=== PATIENT | male | born 1965 | race Hispanic/Latino ===

== ENCOUNTER 2019-10-09 18:36 | Inpatient (IN) | payer OTHER ==
[~2019-10-09] VITALS: Ht 160 cm; Wt 70.8 kg
[~2019-10-09 18:36] MED LIST: ASPIRIN325 MG PO; ATORVASTATIN CA10 MG PO; CILOSTAZOL50 MG PO; GABAPENTIN300 MG PO; GEMFIBROZIL600 MG PO; GLYBURIDE5 MG PO; METFORMIN HCL500 MG PO; PANTOPRAZOLE SO20 MG PO; TRADJENTA5 MG PO
--- OUTSIDE RECORDS SUMMARY | 2019-10-09 18:39 | XMS REPORT ---
[facility] Address Unknown Phone Unavailable Care Team Providers Care Mechanical Product Design Engineer Name Role Phone Unavailable Unavailable Payers Payer Name Policy Type Policy Number Effective Date Expiration Date Problems This patient has no known problems. Allergies, Adverse Reactions, Alerts Allergy Name Allergy Type Status Severity Reaction(s) Onset Date Inactive Date Treating Clinician Comments No Known Allergies DA Active U 2019-10-06 00:00:00 No Known Allergies DA Active U 2019-09-05 00:00:00 No Known Allergies DA Active U 2011-02-21 00:00:00 Medications This patient has no known medications. Results Test Description Test Time Test Comments Text Results Atomic Results Result Comments GLUBED 2019-10-07 10:32:00 GLUBED (test code=GLUBED) 176 mg/dL 74-106 Performed by certified snuff packing machine operator at [facility] PROTHROMBIN [id number] 16:00:00* Test Item Value Reference Range Comments PROTHROMBIN TIME PATIENT (test code=PTP) 11.7 seconds 9.0-14.0 INTERNATIONAL NORMAL RATIO (test code=INR) 1.0 0.8-1.2 The therapeutic range for oral anticoagulant therapy formost indications is an international normalized ratio (INR)of between 2.0 and 3.0. The recommended therapeutic INRrange for various clinical situations is listed below: Clinical Situation INR range Pulmonary e mbolism treatment (2.0-3.0)Venous thrombosis treatmentVenous thrombosis prophylaxis (high risk surgery)Prevention of systemic embolism from: Acute myocardial infarction Valvular heart disease Atrial fibrillation Mechanical prosthetic heart valves (2.5-3.5) THROMBOPLASTIN TIME [id number] 16:00:00* Test Item Value Reference Range Comments THROMBOPLASTIN TIME PARTIAL (test code=PTT) 34.5 seconds 25.0-36.5 BASIC METABOLIC [id number] 15:58:00* Test Item Value Reference Range Comments SODIUM (test code=NA) 140 mmol/L 136-145 POTASSIUM (test code=K) 3.9 mmol/L 3.5-5.1 CHLORIDE (test code=CL) 104.0 mmol/L 98-107 CARBON DIOXIDE (test code=CO2) 29.0 mmol/L 21-32 ANION GAP (test code=GAP) 10.9 10-20 GLUCOSE (test code=GLU) 116 mg/dL 74-106 BLOOD UREA NITROGEN (test code=BUN) 22 mg/dL 7-18 GLOMERULAR FILTRATION RATE (test code=GFR) > 60 mL/min >=60 Estimated GFR by using Modified MDRD formula.Chronic kidney disease is defined as either kidney damageor GFR <60 mL/min/1.73 m2 for >3 months. CREATININE (test code=CREAT) 0.90 mg/dL 0.7-1.3 BUN/CREATININE RATIO (test code=BUN/CREA) 24.4 10-20 CALCIUM (test code=CA) 9.5 mg/dL 8.5-10.1 BASIC METABOLIC [id number] 15:46:00* Test Item Value Reference Range Comments SODIUM (test code=NA) 140 mmol/L 136-145 POTASSIUM (test code=K) 3.9 mmol/L 3.5-5.1 CHLORIDE (test code=CL) 104.0 mmol/L 98-107 CARBON DIOXIDE (test code=CO2) mmol/L 21-32 ANION GAP (test code=GAP) 10-20 GLUCOSE (test code=GLU) mg/dL 74-106 BLOOD UREA NITROGEN (test code=BUN) mg/dL 7-18 GLOMERULAR FILTRATION RATE (test code=GFR) mL/min >=60 CREATININE (test code=CREAT) mg/dL 0.7-1.3 BUN/CREATININE RATIO (test code=BUN/CREA) 10-20 CALCIUM (test code=CA) mg/dL 8.5-10.1 CBC W/AUTO [id number] 15:28:00* Test Item Value Reference Range Comments WHITE BLOOD CELL (test code=WBC) 10.5 K/mm3 4.5-12.5 RED BLOOD CELL (test code=RBC) 5.27 mill/mm3 4.0-5.8 HEMOGLOBIN (test code=HGB) 14.9 gram/dL 13.0-17.5 HEMATOCRIT (test code=HCT) 45.5 % 42.0-52.0 MEAN CELL VOLUME (test code=MCV) 86.3 fL 80-98 MEAN CELL HGB (test code=MCH) 28.3 picogram 27.0-33.0 MEAN CELL HGB CONCETRATION (test code=MCHC) 32.7 gram/dL 33.0-36.0 RED CELL DISTRIBUTION WIDTH (test code=RDW) 13.3 % 11.6-16.2 RED CELL DISTRIBUTION WIDTH SD (test code=RDW-SD) 41.4 fL 37.0-51.0 PLATELET COUNT (test code=PLT) 274 K/mm3 150-450 MEAN PLATELET VOLUME (test code=MPV) 10.4 fL 6.7-11.0 NEUTROPHIL % (test code=NT%) 60.3 % 39.0-69.0 IMMATURE GRANULOCYTE % (test code=IG%) 0.4 % 0.0-5.0 LYMPHOCYTE % (test code=LY%) 28.0 % 25.0-55.0 MONOCYTE % (test code=MO%) 6.8 % 0.0-10.0 EOSINOPHIL % (test code=EO%) 3.6 % 0.0-5.0 BASOPHIL % (test code=BA%) 0.9 % 0.0-1.0 NUCLEATED RBC % (test code=NRBC%) 0.0 % 0-0 NEUTROPHIL # (test code=NT#) 6.35 K/mm3 1.8-7.7 IMMATURE GRANULOCYTE # (test code=IG#) 0.04 x10 3/uL 0-0.03 LYMPHOCYTE # (test code=LY#) 2.94 K/mm3 1.0-5.0 MONOCYTE # (test code=MO#) 0.71 K/mm3 0-0.8 EOSINOPHIL # (test code=EO#) 0.38 K/mm3 0.0-0.5 BASOPHIL # (test code=BA#) 0.09 K/mm3 0.0-0.2 NUCLEATED RBC # (test code=NRBC#) 0.00 K/mm3 0.0-0.1 MANUAL DIFF REQUIRED (test code=MDIFF) NO [id number] 09:21:00* Test Item Value Reference Range Comments GLUBED (test code=GLUBED) 246 mg/dL 74-106 [facility] snuff packing machine [facility] [id number] 21:41:00* Test Item Value Reference Range Comments GLUBED (test code=GLUBED) 230 mg/dL 74-106 Performed by certified snuff packing machine operator at [facility] [id number] 18:37:00* Test Item Value Reference Range Comments GLUBED (test code=GLUBED) 241 mg/dL 74-106 Performed by certified snuff packing machine operator at [facility] [id number] 12:48:00* Test Item Value Reference Range Comments GLUBED (test code=GLUBED) 233 mg/dL 74-106 Performed by certified snuff packing machine operator at [facility] BASIC METABOLIC [id number] 07:32:00* Test Item Value Reference Range Comments SODIUM (test code=NA) 137 mmol/L 136-145 POTASSIUM (test code=K) 4.3 mmol/L 3.5-5.1 CHLORIDE (test code=CL) 104.0 mmol/L 98-107 CARBON DIOXIDE (test code=CO2) 26.0 mmol/L 21-32 ANION GAP (test code=GAP) 11.3 10-20 GLUCOSE (test code=GLU) 263 mg/dL 74-106 BLOOD UREA NITROGEN (test code=BUN) 14 mg/dL 7-18 GLOMERULAR FILTRATION RATE (test code=GFR) > 60 mL/min >=60 Estimated GFR by using Modified MDRD formula.Chronic kidney disease is defined as either kidney damageor GFR <60 mL/min/1.73 m2 for >3 months. CREATININE (test code=CREAT) 0.70 mg/dL 0.7-1.3 BUN/CREATININE RATIO (test code=BUN/CREA) 20.0 10-20 CALCIUM (test code=CA) 8.4 mg/dL 8.5-10.1 BASIC METABOLIC [id number] 07:16:00* Test Item Value Reference Range Comments SODIUM (test code=NA) 137 mmol/L 136-145 POTASSIUM (test code=K) 4.3 mmol/L 3.5-5.1 CHLORIDE (test code=CL) 104.0 mmol/L 98-107 CARBON DIOXIDE (test code=CO2) mmol/L 21-32 ANION GAP (test code=GAP) 10-20 GLUCOSE (test code=GLU) mg/dL 74-106 BLOOD UREA NITROGEN (test code=BUN) mg/dL 7-18 GLOMERULAR FILTRATION RATE (test code=GFR) mL/min >=60 CREATININE (test code=CREAT) mg/dL 0.7-1.3 BUN/CREATININE RATIO (test code=BUN/CREA) 10-20 CALCIUM (test code=CA) mg/dL 8.5-10.1 CBC W/AUTO [id number] 07:13:00* Test Item Value Reference Range Comments WHITE BLOOD CELL (test code=WBC) 9.0 K/mm3 4.5-12.5 RED BLOOD CELL (test code=RBC) 5.35 mill/mm3 4.0-5.8 HEMOGLOBIN (test code=HGB) 15.1 gram/dL 13.0-17.5 HEMATOCRIT (test code=HCT) 45.1 % 42.0-52.0 MEAN CELL VOLUME (test code=MCV) 84.3 fL 80-98 MEAN CELL HGB (test code=MCH) 28.2 picogram 27.0-33.0 MEAN CELL HGB CONCETRATION (test code=MCHC) 33.5 gram/dL 33.0-36.0 RED CELL DISTRIBUTION WIDTH (test code=RDW) 12.8 % 11.6-16.2 RED CELL DISTRIBUTION WIDTH SD (test code=RDW-SD) 38.6 fL 37.0-51.0 PLATELET COUNT (test code=PLT) 212 K/mm3 150-450 MEAN PLATELET VOLUME (test code=MPV) 11.0 fL 6.7-11.0 NEUTROPHIL % (test code=NT%) 60.5 % 39.0-69.0 IMMATURE GRANULOCYTE % (test code=IG%) 0.3 % 0.0-5.0 LYMPHOCYTE % (test code=LY%) 26.4 % 25.0-55.0 MONOCYTE % (test code=MO%) 6.8 % 0.0-10.0 EOSINOPHIL % (test code=EO%) 5.3 % 0.0-5.0 BASOPHIL % (test code=BA%) 0.7 % 0.0-1.0 NUCLEATED RBC % (test code=NRBC%) 0.0 % 0-0 NEUTROPHIL # (test code=NT#) 5.43 K/mm3 1.8-7.7 IMMATURE GRANULOCYTE # (test code=IG#) 0.03 x10 3/uL 0-0.03 LYMPHOCYTE # (test code=LY#) 2.37 K/mm3 1.0-5.0 MONOCYTE # (test code=MO#) 0.61 K/mm3 0-0.8 EOSINOPHIL # (test code=EO#) 0.48 K/mm3 0.0-0.5 BASOPHIL # (test code=BA#) 0.06 K/mm3 0.0-0.2 NUCLEATED RBC # (test code=NRBC#) 0.00 K/mm3 0.0-0.1 MANUAL DIFF REQUIRED (test code=MDIFF) NO [id number] 20:29:00* Test Item Value Reference Range Comments GLUBED (test code=GLUBED) 242 mg/dL 74-106 Performed by certified snuff packing machine operator at [facility] [id number] 16:42:00* Test Item Value Reference Range Comments GLUBED (test code=GLUBED) 286 mg/dL 74-106 Performed by certified snuff packing machine operator at [facility] BASIC METABOLIC [id number] 13:24:00* Test Item Value Reference Range Comments SODIUM (test code=NA) 137 mmol/L 136-145 POTASSIUM (test code=K) 4.3 mmol/L 3.5-5.1 CHLORIDE (test code=CL) 104.0 mmol/L 98-107 CARBON DIOXIDE (test code=CO2) 29.0 mmol/L 21-32 ANION GAP (test code=GAP) 8.3 10-20 GLUCOSE (test code=GLU) 213 mg/dL 74-106 BLOOD UREA NITROGEN (test code=BUN) 17 mg/dL 7-18 GLOMERULAR FILTRATION RATE (test code=GFR) > 60 mL/min >=60 Estimated GFR by using Modified MDRD formula.Chronic kidney disease is defined as either kidney damageor GFR <60 mL/min/1.73 m2 for >3 months. CREATININE (test code=CREAT) 0.70 mg/dL 0.7-1.3 BUN/CREATININE RATIO (test code=BUN/CREA) 24.3 10-20 CALCIUM (test code=CA) 8.2 mg/dL 8.5-10.1 CBC W/AUTO [id number] 13:01:00* Test Item Value Reference Range Comments WHITE BLOOD CELL (test code=WBC) 10.1 K/mm3 4.5-12.5 RED BLOOD CELL (test code=RBC) 5.53 mill/mm3 4.0-5.8 HEMOGLOBIN (test code=HGB) 15.6 gram/dL 13.0-17.5 HEMATOCRIT (test code=HCT) 46.7 % 42.0-52.0 MEAN CELL VOLUME (test code=MCV) 84.4 fL 80-98 MEAN CELL HGB (test code=MCH) 28.2 picogram 27.0-33.0 MEAN CELL HGB CONCETRATION (test code=MCHC) 33.4 gram/dL 33.0-36.0 RED CELL DISTRIBUTION WIDTH (test code=RDW) 12.9 % 11.6-16.2 RED CELL DISTRIBUTION WIDTH SD (test code=RDW-SD) 39.8 fL 37.0-51.0 PLATELET COUNT (test code=PLT) 220 K/mm3 150-450 MEAN PLATELET VOLUME (test code=MPV) 10.9 fL 6.7-11.0 NEUTROPHIL % (test code=NT%) 57.1 % 39.0-69.0 IMMATURE GRANULOCYTE % (test code=IG%) 0.3 % 0.0-5.0 LYMPHOCYTE % (test code=LY%) 31.2 % 25.0-55.0 MONOCYTE % (test code=MO%) 6.1 % 0.0-10.0 EOSINOPHIL % (test code=EO%) 4.4 % 0.0-5.0 BASOPHIL % (test code=BA%) 0.9 % 0.0-1.0 NUCLEATED RBC % (test code=NRBC%) 0.0 % 0-0 NEUTROPHIL # (test code=NT#) 5.76 K/mm3 1.8-7.7 IMMATURE GRANULOCYTE # (test code=IG#) 0.03 x10 3/uL 0-0.03 LYMPHOCYTE # (test code=LY#) 3.15 K/mm3 1.0-5.0 MONOCYTE # (test code=MO#) 0.62 K/mm3 0-0.8 EOSINOPHIL # (test code=EO#) 0.44 K/mm3 0.0-0.5 BASOPHIL # (test code=BA#) 0.09 K/mm3 0.0-0.2 NUCLEATED RBC # (test code=NRBC#) 0.00 K/mm3 0.0-0.1 MANUAL DIFF REQUIRED (test code=MDIFF) NO [id number] 08:20:00* Test Item Value Reference Range Comments GLUBED (test code=GLUBED) 200 mg/dL 74-106 Performed by certified snuff packing machine operator at [facility] BASIC METABOLIC [id number] 07:10:00* Test Item Value Reference Range Comments SODIUM (test code=NA) 137 mmol/L 136-145 POTASSIUM (test code=K) 4.1 mmol/L 3.5-5.1 CHLORIDE (test code=CL) 105.0 mmol/L 98-107 CARBON DIOXIDE (test code=CO2) 27.0 mmol/L 21-32 ANION GAP (test code=GAP) 9.1 10-20 GLUCOSE (test code=GLU) 231 mg/dL 74-106 BLOOD UREA NITROGEN (test code=BUN) 19 mg/dL 7-18 GLOMERULAR FILTRATION RATE (test code=GFR) > 60 mL/min >=60 Estimated GFR by using Modified MDRD formula.Chronic kidney disease is defined as either kidney damageor GFR <60 mL/min/1.73 m2 for >3 months. CREATININE (test code=CREAT) 0.70 mg/dL 0.7-1.3 BUN/CREATININE RATIO (test code=BUN/CREA) 27.1 10-20 CALCIUM (test code=CA) 8.4 mg/dL 8.5-10.1 BASIC METABOLIC [id number] 07:03:00* Test Item Value Reference Range Comments SODIUM (test code=NA) 137 mmol/L 136-145 POTASSIUM (test code=K) 4.1 mmol/L 3.5-5.1 CHLORIDE (test code=CL) 105.0 mmol/L 98-107 CARBON DIOXIDE (test code=CO2) mmol/L 21-32 ANION GAP (test code=GAP) 10-20 GLUCOSE (test code=GLU) mg/dL 74-106 BLOOD UREA NITROGEN (test code=BUN) mg/dL 7-18 GLOMERULAR FILTRATION RATE (test code=GFR) mL/min >=60 CREATININE (test code=CREAT) mg/dL 0.7-1.3 BUN/CREATININE RATIO (test code=BUN/CREA) 10-20 CALCIUM (test code=CA) mg/dL 8.5-10.1 PROTHROMBIN [id number] 06:56:00* Test Item Value Reference Range Comments PROTHROMBIN TIME PATIENT (test code=PTP) 11.5 seconds 9.0-14.0 INTERNATIONAL NORMAL RATIO (test code=INR) 1.0 0.8-1.2 The therapeutic range for oral anticoagulant therapy formost indications is an international normalized ratio (INR)of between 2.0 and 3.0. The recommended therapeutic INRrange for various clinical situations is listed below: Clinical Situation INR range Pulmonary e mbolism treatment (2.0-3.0)Venous thrombosis treatmentVenous thrombosis prophylaxis (high risk surgery)Prevention of systemic embolism from: Acute myocardial infarction Valvular heart disease Atrial fibrillation Mechanical prosthetic heart valves (2.5-3.5) IS PATIENT ON ANTICOAGULANTS? NTHROMBOPLASTIN TIME [id number] 06:56:00* Test Item Value Reference Range Comments THROMBOPLASTIN TIME PARTIAL (test code=PTT) 34.0 seconds 25.0-36.5 IS PATIENT ON ANTICOAGULANTS? NCBC W/AUTO [id number] 06:37:00* Test Item Value Reference Range Comments WHITE BLOOD CELL (test code=WBC) 8.6 K/mm3 4.5-12.5 RED BLOOD CELL (test code=RBC) 5.04 mill/mm3 4.0-5.8 HEMOGLOBIN (test code=HGB) 14.2 gram/dL 13.0-17.5 HEMATOCRIT (test code=HCT) 44.0 % 42.0-52.0 MEAN CELL VOLUME (test code=MCV) 87.3 fL 80-98 MEAN CELL HGB (test code=MCH) 28.2 picogram 27.0-33.0 MEAN CELL HGB CONCETRATION (test code=MCHC) 32.3 gram/dL 33.0-36.0 RED CELL DISTRIBUTION WIDTH (test code=RDW) 13.1 % 11.6-16.2 RED CELL DISTRIBUTION WIDTH SD (test code=RDW-SD) 41.2 fL 37.0-51.0 PLATELET COUNT (test code=PLT) 204 K/mm3 150-450 MEAN PLATELET VOLUME (test code=MPV) 10.6 fL 6.7-11.0 NEUTROPHIL % (test code=NT%) 57.8 % 39.0-69.0 IMMATURE GRANULOCYTE % (test code=IG%) 0.2 % 0.0-5.0 LYMPHOCYTE % (test code=LY%) 28.9 % 25.0-55.0 MONOCYTE % (test code=MO%) 6.5 % 0.0-10.0 EOSINOPHIL % (test code=EO%) 5.7 % 0.0-5.0 BASOPHIL % (test code=BA%) 0.9 % 0.0-1.0 NUCLEATED RBC % (test code=NRBC%) 0.0 % 0-0 NEUTROPHIL # (test code=NT#) 4.94 K/mm3 1.8-7.7 IMMATURE GRANULOCYTE # (test code=IG#) 0.02 x10 3/uL 0-0.03 LYMPHOCYTE # (test code=LY#) 2.48 K/mm3 1.0-5.0 MONOCYTE # (test code=MO#) 0.56 K/mm3 0-0.8 EOSINOPHIL # (test code=EO#) 0.49 K/mm3 0.0-0.5 BASOPHIL # (test code=BA#) 0.08 K/mm3 0.0-0.2 NUCLEATED RBC # (test code=NRBC#) 0.00 K/mm3 0.0-0.1 [id number] 21:26:00* Test Item Value Reference Range Comments GLUBED (test code=GLUBED) 265 mg/dL 74-106 Performed by certified snuff packing machine operator at [facility] [id number] 16:31:00* Test Item Value Reference Range Comments GLUBED (test code=GLUBED) 206 mg/dL 74-106 Performed by certified snuff packing machine operator at [facility] [id number] 12:36:00* Test Item Value Reference Range Comments GLUBED (test code=GLUBED) 310 mg/dL 74-106 [facility] certified snuff packing machine [facility] [id number] 08:13:00* Test Item Value Reference Range Comments GLUBED (test code=GLUBED) 210 mg/dL 74-106 Performed by certified snuff packing machine operator at [facility] BASIC METABOLIC [id number] 05:58:00* Test Item Value Reference Range Comments SODIUM (test code=NA) 140 mmol/L 136-145 POTASSIUM (test code=K) 4.2 mmol/L 3.5-5.1 CHLORIDE (test code=CL) 106.0 mmol/L 98-107 CARBON DIOXIDE (test code=CO2) 29.0 mmol/L 21-32 ANION GAP (test code=GAP) 9.2 10-20 GLUCOSE (test code=GLU) 232 mg/dL 74-106 BLOOD UREA NITROGEN (test code=BUN) 16 mg/dL 7-18 GLOMERULAR FILTRATION RATE (test code=GFR) > 60 mL/min >=60 Estimated GFR by using Modified MDRD formula.Chronic kidney disease is defined as either kidney damageor GFR <60 mL/min/1.73 m2 for >3 months. CREATININE (test code=CREAT) 0.80 mg/dL 0.7-1.3 BUN/CREATININE RATIO (test code=BUN/CREA) 20.0 10-20 CALCIUM (test code=CA) 8.1 mg/dL 8.5-10.1 CBC W/AUTO [id number] 05:36:00* Test Item Value Reference Range Comments WHITE BLOOD CELL (test code=WBC) 9.7 K/mm3 4.5-12.5 RED BLOOD CELL (test code=RBC) 5.03 mill/mm3 4.0-5.8 HEMOGLOBIN (test code=HGB) 14.2 gram/dL 13.0-17.5 HEMATOCRIT (test code=HCT) 43.2 % 42.0-52.0 MEAN CELL VOLUME (test code=MCV) 85.9 fL 80-98 MEAN CELL HGB (test code=MCH) 28.2 picogram 27.0-33.0 MEAN CELL HGB CONCETRATION (test code=MCHC) 32.9 gram/dL 33.0-36.0 RED CELL DISTRIBUTION WIDTH (test code=RDW) 13.4 % 11.6-16.2 RED CELL DISTRIBUTION WIDTH SD (test code=RDW-SD) 41.6 fL 37.0-51.0 PLATELET COUNT (test code=PLT) 205 K/mm3 150-450 MEAN PLATELET VOLUME (test code=MPV) 10.6 fL 6.7-11.0 NEUTROPHIL % (test code=NT%) 55.1 % 39.0-69.0 IMMATURE GRANULOCYTE % (test code=IG%) 0.3 % 0.0-5.0 LYMPHOCYTE % (test code=LY%) 32.6 % 25.0-55.0 MONOCYTE % (test code=MO%) 6.5 % 0.0-10.0 EOSINOPHIL % (test code=EO%) 4.6 % 0.0-5.0 BASOPHIL % (test code=BA%) 0.9 % 0.0-1.0 NUCLEATED RBC % (test code=NRBC%) 0.0 % 0-0 NEUTROPHIL # (test code=NT#) 5.36 K/mm3 1.8-7.7 IMMATURE GRANULOCYTE # (test code=IG#) 0.03 x10 3/uL 0-0.03 LYMPHOCYTE # (test code=LY#) 3.18 K/mm3 1.0-5.0 MONOCYTE # (test code=MO#) 0.63 K/mm3 0-0.8 EOSINOPHIL # (test code=EO#) 0.45 K/mm3 0.0-0.5 BASOPHIL # (test code=BA#) 0.09 K/mm3 0.0-0.2 NUCLEATED RBC # (test code=NRBC#) 0.00 K/mm3 0.0-0.1 MANUAL DIFF REQUIRED (test code=MDIFF) NO [id number] 20:11:00* Test Item Value Reference Range Comments GLUBED (test code=GLUBED) 320 mg/dL 74-106 Performed by certified snuff packing machine operator at [facility] [id number] 17:01:00* Test Item Value Reference Range Comments GLUBED (test code=GLUBED) 343 mg/dL 74-106 Performed by certified snuff packing machine operator at [facility] [id number] 13:26:00* Test Item Value Reference Range Comments GLUBED (test code=GLUBED) 335 mg/dL 74-106 Performed by certified snuff packing machine operator at [facility] [id number] 08:08:00* Test Item Value Reference Range Comments GLUBED (test code=GLUBED) 235 mg/dL 74-106 Performed by certified snuff packing machine operator at [facility] BASIC METABOLIC [id number] 07:00:00* Test Item Value Reference Range Comments SODIUM (test code=NA) 137 mmol/L 136-145 POTASSIUM (test code=K) 3.8 mmol/L 3.5-5.1 CHLORIDE (test code=CL) 104.0 mmol/L 98-107 CARBON DIOXIDE (test code=CO2) 26.0 mmol/L 21-32 ANION GAP (test code=GAP) 10.8 10-20 GLUCOSE (test code=GLU) 277 mg/dL 74-106 BLOOD UREA NITROGEN (test code=BUN) 17 mg/dL 7-18 GLOMERULAR FILTRATION RATE (test code=GFR) > 60 mL/min >=60 Estimated GFR by using Modified MDRD formula.Chronic kidney disease is defined as either kidney damageor GFR <60 mL/min/1.73 m2 for >3 months. CREATININE (test code=CREAT) 0.80 mg/dL 0.7-1.3 BUN/CREATININE RATIO (test code=BUN/CREA) 21.3 10-20 CALCIUM (test code=CA) 8.2 mg/dL 8.5-10.1 BASIC METABOLIC [id number] 06:56:00* Test Item Value Reference Range Comments SODIUM (test code=NA) 137 mmol/L 136-145 POTASSIUM (test code=K) 3.8 mmol/L 3.5-5.1 CHLORIDE (test code=CL) 104.0 mmol/L 98-107 CARBON DIOXIDE (test code=CO2) mmol/L 21-32 ANION GAP (test code=GAP) 10-20 GLUCOSE (test code=GLU) mg/dL 74-106 BLOOD UREA NITROGEN (test code=BUN) mg/dL 7-18 GLOMERULAR FILTRATION RATE (test code=GFR) mL/min >=60 CREATININE (test code=CREAT) mg/dL 0.7-1.3 BUN/CREATININE RATIO (test code=BUN/CREA) 10-20 CALCIUM (test code=CA) mg/dL 8.5-10.1 CBC W/AUTO [id number] 06:45:00* Test Item Value Reference Range Comments WHITE BLOOD CELL (test code=WBC) 11.4 K/mm3 4.5-12.5 RED BLOOD CELL (test code=RBC) 4.89 mill/mm3 4.0-5.8 HEMOGLOBIN (test code=HGB) 14.0 gram/dL 13.0-17.5 HEMATOCRIT (test code=HCT) 41.7 % 42.0-52.0 MEAN CELL VOLUME (test code=MCV) 85.3 fL 80-98 MEAN CELL HGB (test code=MCH) 28.6 picogram 27.0-33.0 MEAN CELL HGB CONCETRATION (test code=MCHC) 33.6 gram/dL 33.0-36.0 RED CELL DISTRIBUTION WIDTH (test code=RDW) 13.5 % 11.6-16.2 RED CELL DISTRIBUTION WIDTH SD (test code=RDW-SD) 42.0 fL 37.0-51.0 PLATELET COUNT (test code=PLT) 209 K/mm3 150-450 MEAN PLATELET VOLUME (test code=MPV) 10.9 fL 6.7-11.0 NEUTROPHIL % (test code=NT%) 69.0 % 39.0-69.0 IMMATURE GRANULOCYTE % (test code=IG%) 0.4 % 0.0-5.0 LYMPHOCYTE % (test code=LY%) 21.5 % 25.0-55.0 MONOCYTE % (test code=MO%) 7.7 % 0.0-10.0 EOSINOPHIL % (test code=EO%) 1.0 % 0.0-5.0 BASOPHIL % (test code=BA%) 0.4 % 0.0-1.0 NUCLEATED RBC % (test code=NRBC%) 0.0 % 0-0 NEUTROPHIL # (test code=NT#) 7.85 K/mm3 1.8-7.7 IMMATURE GRANULOCYTE # (test code=IG#) 0.04 x10 3/uL 0-0.03 LYMPHOCYTE # (test code=LY#) 2.45 K/mm3 1.0-5.0 MONOCYTE # (test code=MO#) 0.88 K/mm3 0-0.8 EOSINOPHIL # (test code=EO#) 0.11 K/mm3 0.0-0.5 BASOPHIL # (test code=BA#) 0.05 K/mm3 0.0-0.2 NUCLEATED RBC # (test code=NRBC#) 0.00 K/mm3 0.0-0.1 MANUAL DIFF REQUIRED (test code=MDIFF) NO - CTA CHEST FOR [id number] 22:15:00 Name: ORLANDO DAVIESIO [facility] : 1965 Age/S: 53 / M [address] [facility] Unit #: [id number] Loc: [place] [address] Phys: Anna Patel OPERATIONAL RISK MANAGER Acct: [id number] Dis Date: Status: ADM IN PHONE #: [phone] Exam Date: 09/05/20192054 FAX #: [phone] Reason: r/o pe EXAMS: CPT CODE: [id number] [place] [id number] EXAM: CT of the chest with contrast; INFORMATION: CHF exacerbation; PE?; TECHNIQUE: CT dose reduction protocol; 1.25 mm cuts were obtained through the chest during intravenous infusion of contrast material; multiplanar reconstructions were obtained; PE protocol; FINDINGS: The pulmonary arteries are densely enhancing and are without filling defects. The thoracic aorta is normal; no evidence of dissection or aneurysm. Slightly prominent subcarinal lymph node that no significant adenopathy; Lung windows show mild basilar atelectatic changes. Small bilateral pleural effusions. Mild cardiomegaly. IMPRESSION: 1. No evidence of pulmonary embolism or aortic dissection. 2. Mild cardiomegaly and small pleural effusions as well as mild dependent atelectasis. Location code: [facility] at 2215 Reported and signed by: Andi Rodas M.D. CC: Jim Teran MD; Anna Patel NP Technologist:Jake Hansen, RT(R)(CT) CTDI: DLP: Trnscb Date/Time: 09/05/2019 (2214) [facility] Orig Print D/T: S: 09/05/2019 (9) PAGE 1 Signed Report [id number] 20:04:00* Test Item Value Reference Range Comments GLUBED (test code=GLUBED) 314 mg/dL 74-106 Performed by certified snuff packing machine operator at [facility] [id number] 17:02:00* Test Item Value Reference Range Comments D-DIMER (test code=DDIMER) 441.00 ng/mLFEU 0-500 Clinical Cut-off value for D- Dimer is 500 ng/mL FEU. Comment: The [employer] D-Dimer assay is intended for use asan aid in the diagnosis of venous thromboembolism (VTE)[deep vein thrombosis (DVT) or pulmonary embolism (PE)].The measurement of D-Dimer should not be used as an aid inthe diagnosis of VTE, in patient with: -Therapeutic dose anticoagulant therapy for >24 hours -Fibrinolytic therapy within previous 7 days -Trauma or surgery within previous 4 weeks -Disseminated malignancies - Aortic aneurysm -Sepsis, severe infections, pneumonia, severe skin infections -Liver cirrhosis - [id number] 16:39:00* Test Item Value Reference Range Comments GLUBED (test code=GLUBED) 372 mg/dL 74-106 Performed by certified snuff packing machine operator at [facility] [id number] 14:43:00* Test Item Value Reference Range Comments TROPONIN-I (test code=TROPI) 0.122 ng/mL 0-0.045 COMMENTS TO FOUNDRY SUPERINTENDANT: COLLECT 3 HOURS AFTER PREVIOUS SAMPLELIPID PROFILE (CORONARY RISK)2019-09-05 14:39:00* Test Item Value Reference Range Comments TRIGLYCERIDES (test code=TRIG) 132 mg/dL 20-150 CHOLESTEROL (test code=CHOL) 241 mg/dL 0-200 CHOLESTEROL/HDL RATIO (test code=CHOLHDL) 5.0 RATIO 0-4.9 RISK ASSOCIATED WITH CHOL/HDL RATIOS: Risk Male Female1/2 AVERAGE 3.43 3.27AVERAGE 4.97 4.442X AVERAGE 9.55 7.053X AVERAGE 23.39 11.04 REFERENCE VALUE IS RELATED TO RISK LEVELS ASRECOMMENDED BY THE DEVAN. HEART, LUNG, AND BLOOD INST. HDL CHOLESTEROL (test code=HDL) 43 mg/dL 40-60 LIPOPROTEIN LDL (test code=LDL) 159 mg/dL 100-129 RN PERSONNEL, CONTACT PHYSICIAN IMMEDIATELY IF THIS IS A STROKE, AMI OR CAROTID STENOSIS PATIENT WHEN THE LDL >100 (1ST OCCURENCE, THIS ADMISSION) Reference Interval: mg/dL mmol/L Optimal <100 <2.6Near/above optimal 100-129 2.6- 3.3Borderline High 130-159 3.4-4.1High 160-189 4.1-4.9Very High >=190 >=4.9=========This LDL result is a direct measurement.========= [id number] 13:39:00* Test Item Value Reference Range Comments GLUBED (test code=GLUBED) 295 mg/dL 74-106 Performed by certified snuff packing machine operator at [facility] CREATINE KINASE (CK)2019-09-05 08:22:00* Test Item Value Reference Range Comments CREATINE KINASE (CK) (test code=CK) 128 IUnit/L 26-208 THYROID STIMULATING [id number] 08:22:00* Test Item Value Reference Range Comments THYROID STIMULATING HORMONE (test code=TSH) 1.730 uIU/mL 0.36-3.74 TSH REFERENCE RANGES: EUTHYROID: 0.35 - 4.3 mIU/mL HYPO : > 5.5 mIU/mL HYPER : < 0.35 mIU/mL [id number] 08:21:00* Test Item Value Reference Range Comments GLYCOSYLATED HEMOGLOBIN (HA1C) (test code=GLYHGB) 9.8 % HbA1 SUGGESTED DIAGNOSIS: HbA1C (%) Diabetic >6.4Prediabetes 5.7 - 6.4Normal <5.7 ESTIMATED AVERAGE GLUCOSE (test code=EAG) 235 MG/DL [id number] 08:05:00* Test Item Value Reference Range Comments GLUBED (test code=GLUBED) 254 mg/dL 74-106 Performed by certified snuff packing machine operator at [facility] [id number] 07:47:00* Test Item Value Reference Range Comments TROPONIN-I (test code=TROPI) 0.142 ng/mL 0-0.045 COMMENTS TO FOUNDRY SUPERINTENDANT: COLLECT 3 HOURS AFTER PREVIOUS [id number] 05:49:00* Test Item Value Reference Range Comments GLUBED (test code=GLUBED) 279 mg/dL 74-106 Performed by certified snuff packing machine operator at [facility] - CT CHEST W/O [id number] 04:25:00 Name: JENAbORLANDO CARRINGTONIO [facility] : 1965 Age/S: 53 / M [address] [facility] Unit #: [id number] Loc: [place] [address] Phys: Zechariah Newberry MD Acct: [id number] Dis Date: Status: ADM IN PHONE #: [phone] Exam Date: 09/05/2019409 FAX #: [phone] Reason: Elevated troponin and chest pain EXAMS: CPT CODE: [id number] CT CHEST W/O CONTRAST 51970 EXAM: - CT CHEST W/O CONTRAST HISTORY: Elevated troponin and chest pain Location code:C3 TECHNIQUE: Axial tomograms through the chest were obtained without intravenous contrast. Coronal and sagittal reformatted images are provided. Automated exposure reduction (Auto mA/Smart mA) was utilized in compliance with ACR Image Wisely with DLP of 600 mGy-cm. COMPARISON: 09/05/2019 FINDINGS: LUNGS: Diffuse interstitial prominence is present. PLEURA: Trace bilateral pleural effusions are seen. VASCULATURE: Cardiomegaly is present. TRACHEOBRONCHIAL TREE: The trachea and lobar bronchi are unremarkable. LYMPHATICS: Mildly prominent lymph nodes are seen greatest in the subcarinal region measuring up to 1.5 cm in short axis dimension. VISUALIZED ABDOMEN: Unremarkable. BONES: No acute osseous findings. SOFT TISSUES: Unremarkable. OTHER: No significant additional findings. IMPRESSION: 1. Features favor CHF/volume overload with cardiomegaly, interstitial edema, trace bilateral pleural effusions. 2. Mediastinal adenopathy is suggested likely reactive in nature. at 8061 Reported and signed by: Diaz Carl M.D. PAGE 1 Signed Report (CONT INUED) Name: FILIPPO DAVIES [facility] : 1965 Age/S: 53 / M [address] [facility] Unit #: [id number] Loc: [place] [address] Phys: Zechariah Paniagua MD Acct: [id number] Dis Date: Status: ADM IN [facility] NE #: [phone] Exam Date: 09/05/2019 0410 FAX #: [phone] Reason: Elevated troponin and chest pain EXAM S: CPT CODE: [id number] CT [facility] ST W/O CONTRAST 78780 <Continued> CC: Zechariah Newberry MD Technologist:SHAHID MANDEL RT CTDI: DLP: Trnscb Date/Time: 09/05/2019 (424) [email or web address] Orig Print D/T: S: 09/05/2019 (3630) PAGE 2 Signed Report B-TYPE NATRIURETIC [id number] 03:12:00* Test Item Value Reference Range Comments B-TYPE NATRIURETIC PEPTIDE (test code=BNP) 220.65 pgram/mL 0-100 BASIC METABOLIC [id number] 02:38:00* Test Item Value Reference Range Comments SODIUM (test code=NA) 140 mmol/L 136-145 POTASSIUM (test code=K) 3.8 mmol/L 3.5-5.1 CHLORIDE (test code=CL) 109.0 mmol/L 98-107 CARBON DIOXIDE (test code=CO2) 25.0 mmol/L 21-32 ANION GAP (test code=GAP) 9.8 10-20 GLUCOSE (test code=GLU) 236 mg/dL 74-106 BLOOD UREA NITROGEN (test code=BUN) 15 mg/dL 7-18 GLOMERULAR FILTRATION RATE (test code=GFR) > 60 mL/min >=60 Estimated GFR by using Modified MDRD formula.Chronic kidney disease is defined as either kidney damageor GFR <60 mL/min/1.73 m2 for >3 months. CREATININE (test code=CREAT) 0.70 mg/dL 0.7-1.3 BUN/CREATININE RATIO (test code=BUN/CREA) 21.4 10-20 CALCIUM (test code=CA) 8.0 mg/dL 8.5-10.1 [id number] 02:38:00* Test Item Value Reference Range Comments TROPONIN-I (test code=TROPI) 0.143 ng/mL 0-0.045 Results called to [id number] by BREEKNBernice 09/05/19 0235Critical results verified and read back by Nurse? Y BASIC METABOLIC [id number] 02:16:00* Test Item Value Reference Range Comments SODIUM (test code=NA) 140 mmol/L 136-145 POTASSIUM (test code=K) 3.8 mmol/L 3.5-5.1 CHLORIDE (test code=CL) 109.0 mmol/L 98-107 CARBON DIOXIDE (test code=CO2) mmol/L 21-32 ANION GAP (test code=GAP) 10-20 GLUCOSE (test code=GLU) mg/dL 74-106 BLOOD UREA NITROGEN (test code=BUN) mg/dL 7-18 GLOMERULAR FILTRATION RATE (test code=GFR) mL/min >=60 CREATININE (test code=CREAT) mg/dL 0.7-1.3 BUN/CREATININE RATIO (test code=BUN/CREA) 10-20 CALCIUM (test code=CA) mg/dL 8.5-10.1 [id number] 02:16:00* Test Item Value Reference Range Comments TROPONIN-I (test code=TROPI) ng/mL 0-0.045 - XR CHEST 1 [id number] 02:01:00 FAX: Get Dickerson MD [phone] [place]: St: REG Name: FILIPPO ANAYA [facility] : [birth year] Age/S: 53/M [address] [facility] Unit #: [id number] Loc: [place] [address] Phys: Get Dickerson MD Acct: [id number] Dis Date: Status: REG ER PHONE #: [phone] Exam Date: 09/05/2019 014 FAX #: [phone] Reason: Shortness of Breath EXAMS: CPT CODE: [id number] XR CHEST 1 V 13546 HISTORY: Shortness of breath Location: C3 COMPARISON:None FINDINGS: Heart size and vascularity are within normal limits. The lungs are clear of focal consolidation. No effusion, pneumothorax, or acute osseous abnormality. IMPRESSION: 1. No focal consolidation. No other acute abnormalities. at 0201 Reported and signed by: Johnny Grewal MD CC: Get Dickerson MD Technologist: DIAZ JACQUES RT(R) Trnscrd Date/Time/By: 09/05/2019 (0201) : By: [email or web address] Orig Print D/T: S: 09/05/2019 (4634) PAGE 1 Signed Report CBC W/O [id number] 01:44:00* Test Item Value Reference Range Comments WHITE BLOOD CELL (test code=WBC) 8.9 K/mm3 4.5-12.5 RED BLOOD CELL (test code=RBC) 4.68 mill/mm3 4.0-5.8 HEMOGLOBIN (test code=HGB) 13.4 gram/dL 13.0-17.5 HEMATOCRIT (test code=HCT) 41.2 % 42.0-52.0 MEAN CELL VOLUME (test code=MCV) 88.0 fL 80-98 MEAN CELL HGB (test code=MCH) 28.6 picogram 27.0-33.0 MEAN CELL HGB CONCETRATION (test code=MCHC) 32.5 gram/dL 33.0-36.0 RED CELL DISTRIBUTION WIDTH (test code=RDW) 13.3 % 11.6-16.2 PLATELET COUNT (test code=PLT) 186 K/mm3 150-450 MEAN PLATELET VOLUME (test code=MPV) 10.2 fL 6.7-11.0
[2019-10-09 19:31] LABS: BASOPHILS # (AUTO) 0.1 (0.0-0.1); BASOPHILS % 0.6 % (0.0-1.0); EOSINOPHILS # (AUTO) 0.4 (0.0-0.4); EOSINOPHILS % 2.9 % (0.0-6.0); HEMATOCRIT 43.9 % (38.2-49.6); HEMOGLOBIN 14.2 g/dL (14.0-18.0); LYMPHOCYTES # (AUTO) 1.9 (1.0-3.2); LYMPHOCYTES % 15.8 % (18.0-39.1); MEAN CORPUSCULAR HEMOGLOBIN 28.1 pg (28-32); MEAN CORPUSCULAR HGB CONC 32.3 g/dL (31-35); MEAN CORPUSCULAR VOLUME 86.9 fL (81-99); MONOCYTES # (AUTO) 1.2 (0.2-0.8); MONOCYTES % 9.4 % (4.4-11.3); NEUTROPHILS # (AUTO) 8.7 (2.1-6.9); PLATELET COUNT 218 x10e3/uL (140-360); RED BLOOD COUNT 5.05 x10e6/uL (4.3-5.7); RED CELL DISTRIBUTION WIDTH 13.2 % (11.7-14.4)
[2019-10-09 19:49] LABS: ALANINE AMINOTRANSFERASE 15 IU/L (0-55); ALBUMIN 3.4 g/dL (3.5-5.0); ALBUMIN/GLOBULIN RATIO 0.9 (0.8-2.0); ALKALINE PHOSPHATASE 96 IU/L (40-150); ANION GAP 15.5 mmol/L (8-16); BLOOD UREA NITROGEN 21 mg/dL (7-26); BUN/CREATININE RATIO 20 (6-25); CALCIUM 9.2 mg/dL (8.4-10.2); CARBON DIOXIDE 25 mmol/L (22-29); CHLORIDE 100 mmol/L (98-107); CREATININE, SERUM 1.04 mg/dL (0.72-1.25); EST GLOMERULAR FILTRATION RATE > 60 ML/MIN (60-); GLUCOSE 362 mg/dL (74-118); POTASSIUM 4.5 mmol/L (3.5-5.1); SODIUM 136 mmol/L (136-145)
--- NOTE | 2019-10-09 20:13 | NUR ---
Patient in radiology at this time. Called radiology and told to bring back to room 6.
--- NOTE | 2019-10-09 20:28 | Diagnostic Imaging Report ---
ADDENDUM #1 Addendum: Diagnosis: Foot pain and swelling Signed by: Dr. Chance Nazario M.D. on 10/20/2019 9:13 AM ORIGINAL REPORT EXAM: FOOT LEFT COMPLETE DATE: 10/09/2019 7:06 PM INDICATION: ^R/O OSTEOMYOLITIS ^[id number] ^1999 COMPARISON: None FINDINGS: 3 views of the left foot show no displaced fracture or dislocation. There is flattening of the tuft of the first distal phalanx suggesting possible bony erosion. Soft tissues are unremarkable with extensive small vessel arterial calcification seen. IMPRESSION: Findings suggest erosions of the tuft of the first distal phalanx. Correlation with location of clinically suspected acute bony findings suggested. No acute fracture or dislocation. Signed by: Dr. Chance Nazario M.D. on 10/09/2019 8:25 PM
[2019-10-09] MEDS ORDERED: DEXTROSE 50% SYRINGE 50 ML IV PRN (21:00)
[2019-10-09] MEDS ORDERED: INSULIN REGULAR, HUMAN 100 UNIT/1 ML 3ML VIAL SQ SCH (21:00)
[2019-10-09] MEDS ORDERED: ONDANSETRON HCL INJ 2MG/ML 2ML 2 MG/ML VIAL IV PRN (21:00)
[2019-10-09] MEDS: SODIUM CHLORIDE 0.9% 1000ML 1,000 ML IV SCH (21:06)
[2019-10-09] MEDS: MORPHINE SULFATE INJ 4 MG/ML INJ 1ML IV PRN (21:20)
[2019-10-09] MEDS: PIPER-TAZ 3.375 GM 50 ML IV SCH (21:22)
[2019-10-09] MEDS: VANCOMYCIN 1GM/NS 250 ML 250 ML IV SCH (22:01)
[2019-10-09] MEDS ORDERED: ACETAMINOPHEN 325 MG TAB PO PRN (22:30)
--- NOTE | 2019-10-09 23:50 | NUR ---
Patient received via stretcher from ER . AAO x 3. Patient had no complaints of pain. Respirations even and non-labored. Admission history obtained. Initial physical assessment performed. IVF infusing at 125 cc/hr. Patient oriented to room, call light and plan of care. Fall precautions implemented. Patient instructed to call for assistance when needed. Call light within reach.
[2019-10-10] VITALS (9 sets, daily range): BP systolic 117–147; BP diastolic 58–76
[2019-10-10] MEDS ORDERED: ATORVASTATIN CA40 MG PO (02:03)
[2019-10-10] MEDS ORDERED: SPIRONOLACTONE25 MG PO (02:03)
[2019-10-10] MEDS ORDERED: FUROSEMIDE40 MG PO (02:03)
[2019-10-10] MEDS ORDERED: CARVEDILOL12.5 MG PO (02:03)
[2019-10-10] MEDS ORDERED: ASPIRIN CHEW81 MG PO (02:03)
[2019-10-10] MEDS ORDERED: ENTRESTO 24 MG1 EACH (02:03)
[2019-10-10] MEDS: MORPHINE SULFATE INJ 4 MG/ML INJ 1ML IV PRN ×3 (02:50→23:18)
[2019-10-10] MEDS: SODIUM CHLORIDE 0.9% 1000ML 1,000 ML IV SCH ×3 (04:51→21:58)
[2019-10-10] MEDS: PIPER-TAZ 3.375 GM 50 ML IV SCH ×3 (05:00→21:58)
[2019-10-10 05:44] LABS: BASOPHILS # (AUTO) 0.1 (0.0-0.1); BASOPHILS % 0.9 % (0.0-1.0); EOSINOPHILS # (AUTO) 0.5 (0.0-0.4); HEMATOCRIT 41.3 % (38.2-49.6); HEMOGLOBIN 13.4 g/dL (14.0-18.0); LYMPHOCYTES # (AUTO) 2.6 (1.0-3.2); LYMPHOCYTES % 25.7 % (18.0-39.1); MEAN CORPUSCULAR HEMOGLOBIN 28.6 pg (28-32); MEAN CORPUSCULAR HGB CONC 32.4 g/dL (31-35); MEAN CORPUSCULAR VOLUME 88.2 fL (81-99); MONOCYTES # (AUTO) 0.9 (0.2-0.8); MONOCYTES % 9.2 % (4.4-11.3); NEUTROPHILS # (AUTO) 5.9 (2.1-6.9); NEUTROPHILS % 58.7 % (38.7-80.0); PLATELET COUNT 129 x10e3/uL (140-360); RED BLOOD COUNT 4.68 x10e6/uL (4.3-5.7); RED CELL DISTRIBUTION WIDTH 13.1 % (11.7-14.4)
[2019-10-10 06:03] LABS: ALANINE AMINOTRANSFERASE 13 IU/L (0-55); ALBUMIN 2.8 g/dL (3.5-5.0); ALBUMIN/GLOBULIN RATIO 0.8 (0.8-2.0); ALKALINE PHOSPHATASE 81 IU/L (40-150); ANION GAP 10.9 mmol/L (8-16); BLOOD UREA NITROGEN 19 mg/dL (7-26); BUN/CREATININE RATIO 23 (6-25); CALCIUM 8.5 mg/dL (8.4-10.2); CARBON DIOXIDE 24 mmol/L (22-29); CHLORIDE 107 mmol/L (98-107); CREATININE, SERUM 0.81 mg/dL (0.72-1.25); EST GLOMERULAR FILTRATION RATE > 60 ML/MIN (60-); GLUCOSE 163 mg/dL (74-118); POTASSIUM 3.9 mmol/L (3.5-5.1); SODIUM 138 mmol/L (136-145)
[2019-10-10] MEDS ORDERED: DEXTROSE 50% SYRINGE 50 ML IV PRN (07:00)
--- NOTE | 2019-10-10 07:00 | NUR ---
RCD PT AT BED PT IS ALERT AND ORIENTED PT RESTING ON BED NO SIGNS OF ANY DISTRESS NOTED IV PATENT BY SALINE FLUSH BED LOW AND LOCKED CALL LIGHT IN REACH
--- NOTE | 2019-10-10 07:25 | NUR ---
Dr. Leodan Muñoz notified of orders in the chart not yet placed in [facility]. Order received to input written orders.
[2019-10-10] MEDS: INSULIN LISPRO 100 UNIT/1 ML 3ML VIAL SQ SCH ×4 (07:30→21:00)
[2019-10-10] MEDS: ASPIRIN 81 MG CHEW TAB PO SCH (09:00)
[2019-10-10] MEDS: ENOXAPARIN SOD INJ 60 MG/0.6 ML SYR SC SCH ×2 (09:00→21:00)
[2019-10-10] MEDS: GABAPENTIN 300 MG CAP PO SCH ×3 (09:00→21:58)
[2019-10-10] MEDS: CARVEDILOL 12.5 MG TAB PO SCH ×2 (09:00→17:00)
[2019-10-10] MEDS: SPIRONOLACTONE 25 MG TAB PO SCH (09:00)
[2019-10-10] MEDS: VANCOMYCIN 1GM/NS 250 ML 250 ML IV SCH ×2 (09:25→22:30)
[2019-10-10] MEDS: FUROSEMIDE 40 MG TAB PO SCH (09:25)
--- NOTE | 2019-10-10 09:42 | Diagnostic Imaging Report ---
Chest, PA and lateral. History: Chest pain. Comparison: None available. Discussion: The cardiomediastinal silhouette and pulmonary vasculature are within normal limits. The lungs are clear without evidence of consolidation or effusion. There are no acute osseous abnormalities. IMPRESSION: No radiographic evidence of acute cardiopulmonary abnormality. Signed by: Karlo Weston MD on 10/10/2019 9:39 AM
--- NOTE | 2019-10-10 09:46 | Diagnostic Imaging Report ---
Left foot, 3 views Clinical indication: Left foot cellulitis Comparison: 10/09/2019 Findings: 3 views of the left foot were obtained. There is no radiographic evidence of acute fracture or dislocation. No definite osseous erosions are identified. Vascular calcifications are noted. There has been no significant interval change when compared to examination from the previous day. Signed by: Karlo Weston MD on 10/10/2019 9:42 AM
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
[2019-10-10] MEDS: MUPIROCIN 2% OINT 22 GM TUBE TOP SCH ×2 (11:30→17:00)
[2019-10-10 12:00] LABS: THYROID STIMULATING HORMONE 3.204 uIU/mL (0.350-4.940)
--- NOTE | 2019-10-10 12:16 | Diagnostic Imaging Report ---
MRI of the left forefoot without contrast. History: Fifth digit cellulitis. Foot pain. Decreased range of motion. Technique: Multiplanar multisequence MRI of the foot without contrast Comparison: October 10, 2019 Findings: No acute fracture, subluxation or avascular necrosis. Scattered degenerative arthrosis. No osseous erosion. Soft tissue edema about the foot most pronounced dorsally and laterally. This could be due to cellulitis. No focal fluid collection is seen. No osseous erosion or focal bone marrow edema is seen to suggest osteomyelitis. Diffuse muscle atrophy. No ligamentous or tendon tear. The visualized neurovascular bundles are intact. Impression: Scattered degenerative arthrosis. No osseous erosion. Soft tissue edema about the foot most pronounced dorsally and laterally. This could be due to cellulitis. No focal fluid collection is seen. No osseous erosion or focal bone marrow edema is seen to suggest osteomyelitis. Signed by: Dr. Jarrett Abbott M.D. on 10/10/2019 12:13 PM
[2019-10-10 12:50] LABS: CLARITY,URINE CLEAR (CLEAR); COLOR,URINE YELLOW (YELLOW); LEUKOCYTE ESTERASE ,URINE NEGATIVE (NEGATIVE); NITRITE,URINE NEGATIVE (NEGATIVE); PROTEIN,URINE DIPSTICK 2+ (NEGATIVE)
[2019-10-10 12:51] LABS: BILIRUBIN,URINE NEGATIVE (NEGATIVE); KETONES,URINE NEGATIVE (NEGATIVE); URINE UROBILINOGEN 0.2 mg/dL (0.2 - 1)
[2019-10-10 12:55] LABS: BACTERIA,URINE RARE /HPF; EPITHELIAL CELLS,URINE FEW /LPF; RBC,URINE 0-5 /HPF (0-5); WBC,URINE (MAN) 0-5 /HPF (0-5)
[2019-10-10] MEDS: CLOTRIMAZOLE 1% CR 15 GM TOP SCH (17:00)
[2019-10-10] MEDS ORDERED: FUROSEMIDE 40 MG TAB PO SCH (18:00)
--- NOTE | 2019-10-10 19:01 | NUR ---
PT RESTING ON BED BED SIDE REPORT GIVEN TO ONCOMING NURSE
--- NOTE | 2019-10-10 19:25 | NUR ---
Patient received sitting up in bed. AAO x 3. Patient had no complaints of pain. Respirations even and non-labored. IVF infusing at 125 cc/hr. Life Vest and safety measures in place. Patient instructed to call for assistance when needed. Call light within reach.
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
[2019-10-10] MEDS: ATORVASTATIN 40 MG TAB PO SCH (21:58)
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
[2019-10-11] VITALS (8 sets, daily range): BP systolic 130–159; BP diastolic 62–86
[2019-10-11] MEDS: MORPHINE SULFATE INJ 4 MG/ML INJ 1ML IV PRN ×3 (03:44→20:56)
[2019-10-11] MEDS: PIPER-TAZ 3.375 GM 50 ML IV SCH ×3 (05:00→20:56)
[2019-10-11 05:31] LABS: BASOPHILS # (AUTO) 0.1 (0.0-0.1); BASOPHILS % 0.6 % (0.0-1.0); EOSINOPHILS # (AUTO) 0.5 (0.0-0.4); EOSINOPHILS % 5.2 % (0.0-6.0); HEMATOCRIT 37.8 % (38.2-49.6); HEMOGLOBIN 11.8 g/dL (14.0-18.0); LYMPHOCYTES # (AUTO) 2.5 (1.0-3.2); MEAN CORPUSCULAR HEMOGLOBIN 27.6 pg (28-32); MEAN CORPUSCULAR HGB CONC 31.2 g/dL (31-35); MEAN CORPUSCULAR VOLUME 88.3 fL (81-99); MONOCYTES # (AUTO) 0.7 (0.2-0.8); MONOCYTES % 8.1 % (4.4-11.3); NEUTROPHILS # (AUTO) 5.1 (2.1-6.9); NEUTROPHILS % 57.5 % (38.7-80.0); PLATELET COUNT 166 x10e3/uL (140-360); RED BLOOD COUNT 4.28 x10e6/uL (4.3-5.7); RED CELL DISTRIBUTION WIDTH 12.8 % (11.7-14.4)
[2019-10-11] MEDS: SODIUM CHLORIDE 0.9% 1000ML 1,000 ML IV SCH ×2 (06:00→12:34)
[2019-10-11 06:04] LABS: ALANINE AMINOTRANSFERASE 10 IU/L (0-55); ALBUMIN 2.6 g/dL (3.5-5.0); ALBUMIN/GLOBULIN RATIO 0.8 (0.8-2.0); ALKALINE PHOSPHATASE 89 IU/L (40-150); ANION GAP 8.2 mmol/L (8-16); BLOOD UREA NITROGEN 17 mg/dL (7-26); BUN/CREATININE RATIO 23 (6-25); CALCIUM 8.1 mg/dL (8.4-10.2); CARBON DIOXIDE 24 mmol/L (22-29); CHLORIDE 109 mmol/L (98-107); CREATININE, SERUM 0.73 mg/dL (0.72-1.25); EST GLOMERULAR FILTRATION RATE > 60 ML/MIN (60-); GLUCOSE 205 mg/dL (74-118); POTASSIUM 4.2 mmol/L (3.5-5.1); SODIUM 137 mmol/L (136-145)
--- NOTE | 2019-10-11 06:50 | NUR ---
Walking rounds done. Patient resting comfortably. BSSR given to oncoming nurse.
[2019-10-11] MEDS: INSULIN LISPRO 100 UNIT/1 ML 3ML VIAL SQ SCH ×4 (07:30→21:00)
[2019-10-11] MEDS: FUROSEMIDE 40 MG TAB PO SCH (09:00)
[2019-10-11] MEDS: GABAPENTIN 300 MG CAP PO SCH ×3 (09:00→20:56)
[2019-10-11] MEDS: ENOXAPARIN SOD INJ 60 MG/0.6 ML SYR SC SCH ×2 (09:00→20:56)
[2019-10-11] MEDS: SPIRONOLACTONE 25 MG TAB PO SCH (09:00)
[2019-10-11] MEDS: CARVEDILOL 12.5 MG TAB PO SCH ×2 (09:00→16:40)
[2019-10-11] MEDS: ASPIRIN 81 MG CHEW TAB PO SCH (09:00)
[2019-10-11] MEDS: CLOTRIMAZOLE 1% CR 15 GM TOP SCH ×2 (09:00→16:40)
[2019-10-11] MEDS: MUPIROCIN 2% OINT 22 GM TUBE TOP SCH ×2 (09:00→16:40)
[2019-10-11] MEDS: VANCOMYCIN 1GM/NS 250 ML 250 ML IV SCH ×2 (10:00→22:00)
--- NOTE | 2019-10-11 14:35 | Progress Note ---
DATE: 10/11/2019 Cardiology Progress Note SUBJECTIVE: The patient is comfortable with no new complaints. He denies the presence of chest pain or shortness of breath. OBJECTIVE: VITAL SIGNS: Temperature is 97.0, heart rate 82, blood pressure 130/67, respirations 20, O2 saturation 99% on room air. GENERAL: No acute distress. Alert and oriented x3. HEENT: Normocephalic, atraumatic. No JVD. No lymphadenopathy. LUNGS: Clear to auscultation bilaterally. No distress. HEART: Regular rate and rhythm. Normal S1 and S2. The patient continues to wear a LifeVest. ABDOMEN: Soft and nontender. Positive bowel sounds. NEUROLOGIC: No focal deficits. EXTREMITIES: Left foot with dressing that is clean, dry, and intact. No significant lower extremity edema. CARDIOVASCULAR MEDICATIONS: Please refer to chart. ASSESSMENT: A 54-year-old man who presents with the followin. Left foot cellulitis. 2. Peripheral arterial disease, status post recent angioplasty. 3. Coronary artery disease, status post past history of myocardial infarction. 4. Severe combined systolic congestive heart failure, currently on LifeVest. 5. Hypertension. 6. Tobacco use. RECOMMENDATIONS: Continue supportive care and IV antibiotics per primary for cellulitis. The patient is currently stable from cardiovascular standpoint. Recommend to continue current cardiovascular medications. We will continue to follow the patient with you. DVT prophylaxis. Cross cover for Dr. Amandeep Oconnor. MD PRETTY Garrido/ANKIT /[id number]
--- NOTE | 2019-10-11 18:40 | NUR ---
PT RESTING ON BED BED SIDE REPORT GIVEN TO ONCOMING NURSE
[2019-10-11] MEDS: ATORVASTATIN 40 MG TAB PO SCH (20:56)
[2019-10-12] VITALS (7 sets, daily range): BP systolic 146–172; BP diastolic 67–84
[2019-10-12] MEDS: MORPHINE SULFATE INJ 4 MG/ML INJ 1ML IV PRN ×4 (00:55→22:43)
[2019-10-12] MEDS: PIPER-TAZ 3.375 GM 50 ML IV SCH ×3 (05:22→22:34)
[2019-10-12] MEDS: INSULIN LISPRO 100 UNIT/1 ML 3ML VIAL SQ SCH ×4 (07:30→22:50)
[2019-10-12] MEDS: CARVEDILOL 12.5 MG TAB PO SCH ×2 (09:00→16:40)
[2019-10-12] MEDS: CLOTRIMAZOLE 1% CR 15 GM TOP SCH ×2 (09:00→17:00)
[2019-10-12] MEDS: SPIRONOLACTONE 25 MG TAB PO SCH (09:00)
[2019-10-12] MEDS: ASPIRIN 81 MG CHEW TAB PO SCH (09:00)
[2019-10-12] MEDS: FUROSEMIDE 40 MG TAB PO SCH (09:00)
[2019-10-12] MEDS: ENOXAPARIN SOD INJ 60 MG/0.6 ML SYR SC SCH ×2 (09:00→22:34)
[2019-10-12] MEDS: MUPIROCIN 2% OINT 22 GM TUBE TOP SCH ×2 (09:00→17:00)
[2019-10-12] MEDS: GABAPENTIN 300 MG CAP PO SCH ×3 (09:00→22:34)
[2019-10-12] MEDS: VANCOMYCIN 1GM/NS 250 ML 250 ML IV SCH ×2 (10:00→23:03)
--- NOTE | 2019-10-12 13:30 | NUR ---
Visit made by the Spiritual Care Department Pastoral Visitor, Zachary Caldera. PV provided pastoral presence, hospitality, communion, and supportive listening. Pastoral Visitor informed pt/family of the scope of [employer] and availability. JACOB MITCHELL Nurse Obgyn Spiritual Care Department O: [phone] Pager: [phone] ([phone] calling from)
--- NOTE | 2019-10-12 14:10 | Progress Note ---
DATE: 10/12/2019 Cardiology Progress Note SUBJECTIVE: The patient is comfortable. No new complaints. He denies chest pain or shortness of breath. OBJECTIVE: VITAL SIGNS: Temperature is 99.1, heart rate 87, blood pressure 167/78, respirations 20. GENERAL: No acute distress. Alert and oriented x3. HEENT: Normocephalic, atraumatic. No JVD. LUNGS: Clear to auscultation bilaterally. No distress. HEART: Regular rate and rhythm. Normal S1, S2. The patient continues to wear LifeVest. ABDOMEN: Soft and nontender. Positive bowel sounds. NEUROLOGIC: No focal deficits. EXTREMITIES: Left foot with dressing that is clean, dry, and intact. No significant lower extremity edema. CARDIOVASCULAR MEDICATIONS: Please refer to chart. ASSESSMENT: A 54-year-old man, who presents with the followin. Left foot cellulitis. 2. Peripheral arterial disease, status post recent angioplasty. 3. Coronary artery disease, status post history of myocardial infarction. 4. Severe combined systolic congestive heart failure, currently wearing a LifeVest. 5. Hypertension. 6. Tobacco use. RECOMMENDATIONS: Continue supportive care and IV antibiotics per primary team for foot cellulitis. The patient is stable from a cardiovascular standpoint. Recommend to continue current cardiovascular medications and increase carvedilol to 25 mg p.o. b.i.d. for additional blood pressure control. We will continue to follow the patient with you. Yuri cover for Dr. Amandeep Oconnor. MD PRETTY Garrido/ANKIT /[id number]
--- NOTE | 2019-10-12 17:52 | NUR ---
DRESSING CHANGED ON LEFT FOOT
--- NOTE | 2019-10-12 18:40 | NUR ---
PT RESTING ON BED BED SIDE REPORT GIVEN TO ONCOMING NURSE
[2019-10-12] MEDS ORDERED: SODIUM CHLORIDE 0.9% 250ML 250 ML ONE (22:13)
[2019-10-12] MEDS: ATORVASTATIN 40 MG TAB PO SCH (22:34)
[2019-10-13] VITALS (7 sets, daily range): BP systolic 133–169; BP diastolic 61–76
[2019-10-13 05:28] LABS: BASOPHILS % 0.5 % (0.0-1.0); EOSINOPHILS # (AUTO) 0.5 (0.0-0.4); EOSINOPHILS % 5.8 % (0.0-6.0); HEMATOCRIT 36.9 % (38.2-49.6); HEMOGLOBIN 11.8 g/dL (14.0-18.0); LYMPHOCYTES # (AUTO) 1.9 (1.0-3.2); LYMPHOCYTES % 22.2 % (18.0-39.1); MEAN CORPUSCULAR HEMOGLOBIN 27.5 pg (28-32); MONOCYTES # (AUTO) 0.8 (0.2-0.8); MONOCYTES % 8.6 % (4.4-11.3); NEUTROPHILS # (AUTO) 5.5 (2.1-6.9); NEUTROPHILS % 62.6 % (38.7-80.0); PLATELET COUNT 173 x10e3/uL (140-360); RED BLOOD COUNT 4.29 x10e6/uL (4.3-5.7); RED CELL DISTRIBUTION WIDTH 12.6 % (11.7-14.4)
[2019-10-13 05:45] LABS: ALANINE AMINOTRANSFERASE 15 IU/L (0-55); ALBUMIN 2.6 g/dL (3.5-5.0); ALBUMIN/GLOBULIN RATIO 0.8 (0.8-2.0); ALKALINE PHOSPHATASE 101 IU/L (40-150); BLOOD UREA NITROGEN 11 mg/dL (7-26); BUN/CREATININE RATIO 17 (6-25); CALCIUM 7.6 mg/dL (8.4-10.2); CARBON DIOXIDE 23 mmol/L (22-29); CHLORIDE 109 mmol/L (98-107); CREATININE, SERUM 0.65 mg/dL (0.72-1.25); EST GLOMERULAR FILTRATION RATE > 60 ML/MIN (60-); GLUCOSE 189 mg/dL (74-118); SODIUM 138 mmol/L (136-145)
[2019-10-13] MEDS: PIPER-TAZ 3.375 GM 50 ML IV SCH ×3 (05:50→20:49)
--- NOTE | 2019-10-13 07:15 | NUR ---
Bedside report and rounds completed with oncoming nurse. Patient in bed resting, call light within reach. No issues or concerns noted.
[2019-10-13] MEDS: INSULIN LISPRO 100 UNIT/1 ML 3ML VIAL SQ SCH ×4 (08:30→20:57)
[2019-10-13] MEDS ORDERED: ONDANSETRON HCL 4 MG ORAL DISINTEGRATING TAB PO PRN (09:00)
[2019-10-13] MEDS: ENOXAPARIN SOD INJ 60 MG/0.6 ML SYR SC SCH (09:15)
[2019-10-13] MEDS: CARVEDILOL 12.5 MG TAB PO SCH ×2 (09:15→17:00)
[2019-10-13] MEDS: GABAPENTIN 300 MG CAP PO SCH ×3 (09:15→20:49)
[2019-10-13] MEDS: ASPIRIN 81 MG CHEW TAB PO SCH (09:15)
[2019-10-13] MEDS: CLOPIDOGREL BISULFATE 75 MG TAB PO SCH (09:15)
[2019-10-13] MEDS: FUROSEMIDE 40 MG TAB PO SCH (09:15)
[2019-10-13] MEDS: VANCOMYCIN 1GM/NS 250 ML 250 ML IV SCH ×2 (09:16→22:29)
[2019-10-13] MEDS: SPIRONOLACTONE 25 MG TAB PO SCH (09:16)
--- NOTE | 2019-10-13 10:39 | Progress Note ---
DATE: 10/13/2019 Cardiology Progress Note SUBJECTIVE: Denies any chest pain or shortness of breath. Left foot pain much better. OBJECTIVE: VITAL SIGNS: Temperature 98.3, heart rate 80, respiratory rate 18, blood pressure 163/72, O2 saturation 99% on room air. GENERAL: No acute distress, alert. NECK: No JVD. CHEST: Clear to auscultation. CARDIOVASCULAR: Regular rate and rhythm. Normal S1 and S2. ABDOMEN: Soft. Bowel sounds positive. EXTREMITIES: No edema. Left foot wound between 5th and 4th toes improving. CARDIOVASCULAR MEDICATIONS: Reviewed on Zosyn, vancomycin, atorvastatin 40 mg at bedtime, Lovenox 60 mg subcu q.12 hours, carvedilol 25 mg b.i.d., spironolactone 12.5 mg daily, aspirin 81 mg daily, clopidogrel 75 mg daily. STUDIES: Reviewed. Creatinine 0.6, hemoglobin 11.8, white blood cells 8.7, platelets 173. ASSESSMENT: 1. A 54-year-old man presents with left foot cellulitis and wound in the interdigital area between 5th and 4th toes. 2. Peripheral vascular disease status post recent left external iliac artery CIGARETTE SELLER stent, left SFA GLOBE CHANGER revascularization with CIGARETTE SELLER stent. 3. 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 4. Coronary artery disease. 5. Hypertension. 6. Smoker. RECOMMENDATIONS: Continue current cardiovascular medications with the following changes: 1. Add Entresto. 2. Monitor potassium and continue spironolactone 12.5 mg daily. 3. Decrease Lovenox to DVT prophylaxis dosing. 4. Continue dual antiplatelet therapy as well as statin therapy. MD AMBER Aldana/MANIL /[id number]
[2019-10-13] MEDS: CLOTRIMAZOLE 1% CR 15 GM TOP SCH ×2 (13:44→17:00)
[2019-10-13] MEDS: MUPIROCIN 2% OINT 22 GM TUBE TOP SCH ×2 (13:44→17:00)
--- NOTE | 2019-10-13 14:11 | NUR ---
Local wound care teaching was done. The patient verbalized a proper understanding of how to care for foot ulcer. The patient's daughter was also present at the time of teaching. Patient denies needing or wanting home health care to care for ulcer.
[2019-10-13] MEDS: MORPHINE SULFATE INJ 4 MG/ML INJ 1ML IV PRN ×2 (14:26→21:01)
--- NOTE | 2019-10-13 19:00 | NUR ---
Bedside report and rounds completed with off going nurse. Patient in bed, call light within reach. No issues or concerns noted. Will continue to monitor closely.
[2019-10-13] MEDS: VALSARTAN/SACUBITRIL 24MG/26MG 1 EA TAB PO SCH (20:49)
[2019-10-13] MEDS: ATORVASTATIN 40 MG TAB PO SCH (20:49)
[2019-10-14 00:42] VITALS: BP 125/71
[2019-10-14 05:11] VITALS: BP 152/66
[2019-10-14] MEDS: PIPER-TAZ 3.375 GM 50 ML IV SCH (05:30)
--- NOTE | 2019-10-14 07:21 | NUR ---
Bedside report and rounds completed with oncoming nurse. Patient in bed resting, call light within reach. No issues or concerns noted.
[2019-10-14 07:51] VITALS: BP 166/77
[2019-10-14 08:07] VITALS: BP 166/77
[2019-10-14] MEDS: CARVEDILOL 12.5 MG TAB PO SCH (08:34)
[2019-10-14] MEDS: ASPIRIN 81 MG CHEW TAB PO SCH (08:34)
[2019-10-14] MEDS: SPIRONOLACTONE 25 MG TAB PO SCH (08:34)
[2019-10-14] MEDS: VALSARTAN/SACUBITRIL 24MG/26MG 1 EA TAB PO SCH (08:34)
[2019-10-14] MEDS: GABAPENTIN 300 MG CAP PO SCH (08:35)
[2019-10-14] MEDS: CLOPIDOGREL BISULFATE 75 MG TAB PO SCH (08:35)
[2019-10-14] MEDS: FUROSEMIDE 40 MG TAB PO SCH (08:35)
[2019-10-14] MEDS: INSULIN LISPRO 100 UNIT/1 ML 3ML VIAL SQ SCH (08:36)
[2019-10-14] MEDS: VANCOMYCIN 1GM/NS 250 ML 250 ML IV SCH (09:00)
[2019-10-14] MEDS ORDERED: ENOXAPARIN SOD INJ 40 MG/0.4 ML SYR SC SCH (09:00)
--- NOTE | 2019-10-14 11:12 | NUR ---
Discharge instructions and prescriptions were given to the patient and his . They verbalized understanding. Wound care teaching was done 10/13/19. IV from the left ac was removed with tip intact.
--- NOTE | 2019-10-14 11:16 | Progress Note ---
DATE: 10/14/2019 Cardiology Progress Note SUBJECTIVE: Denies chest pain or shortness of breath. OBJECTIVE: VITAL SIGNS: Temperature 97.6, heart rate 78, respiratory rate 18, blood pressure 166/77, and O2 saturation 99%. GENERAL: In no acute distress. Alert. NECK: No JVD. CHEST: Clear to auscultation. CARDIOVASCULAR: Regular rate and rhythm. Normal S1 and S2. ABDOMEN: Soft. Bowel sounds positive. EXTREMITIES: Trace edema. Left foot erythema resolved. Pain resolved. Wound between 4th and 5th digit improving. CARDIOVASCULAR MEDICATIONS: Reviewed. Entresto 24/26 mg tablets every 12 hours, atorvastatin 40 mg at bedtime, carvedilol 25 mg b.i.d., Lovenox 40 mg subcutaneous daily, aspirin 81 mg daily, and clopidogrel 75 mg daily. STUDIES: Reviewed. Potassium 4 and creatinine 0.6. Hemoglobin 11.8, white blood cells 8.7, and platelets 173. AST 19 and ALT 15. ASSESSMENT AND PLAN: 1. A 54-year-old man presents with left foot wound and cellulitis in the setting of underlying peripheral arterial disease, status post recent left lower extremity revascularization. 2. Chronic severe systolic heart failure adhering to LifeVest. 3. Coronary artery disease. 4. Dyslipidemia. 5. Hypertension. RECOMMEND: 1. Continue current cardiovascular medications. 2. Upon discharge outpatient followup in 4 to 6 weeks. Amandeep Oconnor MD AFV/MODL /[id number]
--- NOTE | 2019-10-14 23:29 | Discharge Summary ---
DISCHARGE DIAGNOSIS: Left foot cellulitis, diabetic foot ulcers, and severe peripheral artery disease. HOSPITAL COURSE: This is a 54-year-old male patient, admitted with left foot ulceration, redness, and swelling. ADMITTING IMPRESSION: Diagnosis: Cellulitis of the left foot with recent angioplasty of the left leg with PAD and diabetic neuropathy and hypertensive heart disease. The patient was admitted with above diagnoses. The patient was treated with IV antibiotics, Zosyn, and vancomycin and the patient had MRI done to rule out osteomyelitis and there was no osteomyelitis. Lower extremity Doppler study was done. Cardiology and ID consultation was done. The patient had significantly improved with IV antibiotics treatment and wound care treatment. The patient has a still significant disease on the right lower extremity. For that, the patient is requiring angioplasty at a later date. On the left side, the patient has a stent open and patent and the patient had distal circulation present. So, now upon stabilization, the patient is being discharged home on oral doxycycline and the patient is advised to follow up with me as outpatient. MD GOMEZ Montejo/ANKIT /[id number]
== END 2019-10-14 11:39 | disposition home or self-care (01) | DRG 638 ==
LOC: ER 18:36 → ERHOLD 21:35 → MED/SURG2 23:52
PROVIDERS: ADMIT Internal Medicine; ATTEND Internal Medicine
DX: E11.628 Type 2 diabetes mellitus with other skin complications (principal); L03.116 Cellulitis of left lower limb; L97.528 Non-pressure chronic ulcer of other part of left foot with other specified severity; I50.42 Chronic combined systolic (congestive) and diastolic (congestive) heart failure; I11.0 Hypertensive heart disease with heart failure; E11.65 Type 2 diabetes mellitus with hyperglycemia; B35.3 Tinea pedis; I25.10 Atherosclerotic heart disease of native coronary artery without angina pectoris; I25.2 Old myocardial infarction; F17.200 Nicotine dependence, unspecified, uncomplicated; E11.51 Type 2 diabetes mellitus with diabetic peripheral angiopathy without gangrene; E78.5 Hyperlipidemia, unspecified; E11.621 Type 2 diabetes mellitus with foot ulcer
CPT/HCPCS: 36415; 71046; 80053; 80061; 80202; 81001; 82948; 84443; 85025; 85651; 86140; 87040; 93005; 93925; 99284; J1650; J1817; J2270; J2543; J3370; J7030; J7050

== ENCOUNTER → 2023-01-20 | Day surgery (SDC) | payer OTHER ==
[2023-01-11 12:02] LABS: BASOPHILS # (AUTO) 0.1 (0.0-0.1); EOSINOPHILS # (AUTO) 0.3 (0.0-0.4); EOSINOPHILS % 3.6 % (0.0-6.0); HEMATOCRIT 42.2 % (38.2-49.6); HEMOGLOBIN 13.9 g/dL (14.0-18.0); LYMPHOCYTES # (AUTO) 2.4 (1.0-3.2); LYMPHOCYTES % 28.2 % (18.0-39.1); MEAN CORPUSCULAR HEMOGLOBIN 29.1 pg (28-32); MEAN CORPUSCULAR HGB CONC 32.9 g/dL (31-35); MEAN CORPUSCULAR VOLUME 88.3 fL (81-99); MONOCYTES # (AUTO) 0.5 (0.2-0.8); MONOCYTES % 5.8 % (4.4-11.3); NEUTROPHILS # (AUTO) 5.3 (2.1-6.9); NEUTROPHILS % 61.2 % (38.7-80.0); PLATELET COUNT 203 x10e3/uL (140-360); RED BLOOD COUNT 4.78 x10e6/uL (4.3-5.7); RED CELL DISTRIBUTION WIDTH 13.2 % (11.7-14.4)
[~2023-01-20] MED LIST changes: +ASPIRIN CHEW81 MG PO; +ATORVASTATIN CA40 MG PO; +CARVEDILOL12.5 MG PO; +CILOSTAZOL100 MG PO; +EFFIENT10 MG PO; +ENTRESTO 24 MG1 EACH; +EPHEDRINE SULFATE INJ 50 MG/ML VIAL ONE; +FARXIGA10 MG PO; +FENTANYL CITRATE/PF 100MCG/2 ML INJ ONE; +FUROSEMIDE40 MG PO; +HYOSCYAMINE SULFATE 0.5 MG/ML INJ ONE; +LACTATED RINGER'S 1,000 ML ONE; +MIDAZOLAM HCL 2 MG/2 ML VIAL ONE; +PANTOPRAZOLE SO40 MG PO; +PROPOFOL IV EMULSION 10 MG/ML 20 ML VIAL ONE; +SPIRONOLACTONE25 MG PO; +XARELTO10 MG PO
[2023-01-20 11:16] VITALS: TEMP 97.5
[2023-01-20 11:43] VITALS: BP 131/58; PULSE 78; RESP 18; O2SAT 98
== END | disposition home or self-care (01) ==
LOC: OR 09:36
PROVIDERS: ATTEND Internal Medicine Gastroenterology
DX: Z12.11 Encounter for screening for malignant neoplasm of colon (principal); D12.3 Benign neoplasm of transverse colon; K57.30 Diverticulosis of large intestine without perforation or abscess without bleeding; Z98.0 Intestinal bypass and anastomosis status; K64.8 Other hemorrhoids; I25.10 Atherosclerotic heart disease of native coronary artery without angina pectoris; I10 Essential (primary) hypertension; E11.9 Type 2 diabetes mellitus without complications; F17.200 Nicotine dependence, unspecified, uncomplicated; Z01.812 Encounter for preprocedural laboratory examination; Z79.02 Long term (current) use of antithrombotics/antiplatelets; Z79.84 Long term (current) use of oral hypoglycemic drugs; Z79.899 Other long term (current) drug therapy; Z95.0 Presence of cardiac pacemaker; Z85.048 Personal history of other malignant neoplasm of rectum, rectosigmoid junction, and anus
CPT/HCPCS: 36415 ×2; 45380; 82948; 85025; J1980; J2250; J2704; J3010; J7121; 45378; 45385

== ENCOUNTER → 2023-03-07 | Outpatient (CLI) | payer OTHER ==
[~2023-03-07] MED LIST changes: -EPHEDRINE SULFATE INJ 50 MG/ML VIAL ONE; -FENTANYL CITRATE/PF 100MCG/2 ML INJ ONE; -HYOSCYAMINE SULFATE 0.5 MG/ML INJ ONE; -LACTATED RINGER'S 1,000 ML ONE; -MIDAZOLAM HCL 2 MG/2 ML VIAL ONE; -PROPOFOL IV EMULSION 10 MG/ML 20 ML VIAL ONE
== END ==
LOC: RAD 15:05
PROVIDERS: ATTEND Internal Medicine
DX: M75.102 Unspecified rotator cuff tear or rupture of left shoulder, not specified as traumatic (principal)